=== PATIENT | female | born 1990 | race Caucasian/White ===

== ENCOUNTER 2016-12-07 13:05 | Day surgery (SDC) | payer OTHER ==
[~2016-12-07] VITALS: Ht 172.7 cm; Wt 99.3 kg
[~2016-12-07 13:05] MED LIST: 0.9% Sodium Chloride 1,000 ML IV PRN; ALBU2.5V4 INHALATION; Sodium Chloride LOK Flush 10 mL Syringe IV PRN; fentaNYL-PF 50 mCg/mL 2 mL Inj IVPUSH PRN
[2016-12-07 14:22] VITALS: BP 145/86; PULSE 65; RESP 14; O2SAT 100
--- NOTE | 2016-12-07 15:52 | PCM.ENDCOL ---
Colonoscopy Date of Service: December 07, 2016 Physician Hemanth Bass MD Pre Procedure Diagnosis: Constipation Post Procedure Dx & Findings: Hemorrhoids Procedure Colonoscopy PROCEDURE IN DETAIL: Prep adequate Withdrawal time 9 minutes After unremarkable rectal examination the Olympus video colonoscope was inserted patient's anal canal and was advanced to cecum. Landmarks were identified including the ileocecal valve and appendiceal orifice. Scope further advanced into terminal ileum which showed normal villous structures without any ulcer or mass erosions. Scope was withdrawn systematically. Visualized colonic mucosa showed healthy shiny mucosa with normal healthy- appearing vasculature. In the rectum retroflexion was done which showed hemorrhoids. Anal canal was inspected carefully on the way out and hemorrhoids noted. Impression Normal TI Hemorrhoids Recommendation Repeat colonoscopy when she is 50 years old Presedation Assessment Risks and Benefits Informed consent was obtained from the patient after all risks and benefits including but not limited to drug reaction, infection, pain, bleeding, perforation, as well as alternatives were discussed. Patient monitoring Continuous pulse oximetry, cardiac monitoring, blood pressure monitoring, IV access, and oxygen at 2L per nasal cannula. Periprocedural Fentanyl: Fentanyl 125mcg Incrementally Midazolam: Midazolam 6mg Incrementally Complications There were no periprocedural complications identified. Post Procedure Plan Post Procedure Recommendations 1. Restrict activities today. 2. Resume normal activities in the morning. 3. Resume medications. 4. Patient informed of normal post procedure side effects as bloating, drowsiness, blood streaking in the stool. 5. average risk CRCS. If colon polyps come back as: -Hyperplastic- can repeat colonoscopy in 10 years -Tubular adenoma- repeat colonoscopy in 5 years -Tubulovillous/villous adenoma- repeat colonoscopy in 3 years -If any dysplasia- return to clinic as soon as possible 6. Please don't hesitate to call me with any questions. Hemanth Bass MD December 07, 2016 15:52
[2016-12-07 15:53] VITALS: BP 122/80; PULSE 62; RESP 16; O2SAT 100
[2016-12-07 16:07] VITALS: BP 126/67; PULSE 62; RESP 15; O2SAT 100
[2016-12-07 16:16] VITALS: BP 137/69; PULSE 58; RESP 17; O2SAT 100
== END 2016-12-07 23:59 | disposition home or self-care (01) ==
LOC: END 13:05
PROVIDERS: ATTEND Internal Medicine
DX: K59.00 Constipation, unspecified (principal); K64.8 Other hemorrhoids
CPT/HCPCS: 45378; 99153; G0500; J2250; J3010; J7030